=== PATIENT | female | born 1975 | race Caucasian/White ===

== ENCOUNTER 2020-08-09 13:52 | Outpatient (REF) | payer SELFPAY ==
[2020-08-12 05:43] LABS: Patient Race White; SARS-CoV-2 RNA Undetected (Undetected); SARS-CoV-2 Specimen Source Nasal
== END 2020-08-09 14:12 ==
LOC: NCHCN 13:52
PROVIDERS: PCP Nurse Practitioner Family; Visit Provider Family Medicine
DX: Z20.828 Contact with and (suspected) exposure to other viral communicable diseases (principal)
CPT/HCPCS: U0003